=== PATIENT | female | born 1945 | race Caucasian/White ===

== ENCOUNTER 2021-08-17 11:51 | Inpatient (IN) | payer OTHER, MEDICARE ==
[2021-08-17 13:14] LABS: VENOUS O2 SATURATION 67.2 % (70-80); VENOUS PCO2 49.4 mmHg (38-52); VENOUS PH 7.372 (7.310-7.410)
[2021-08-17 13:21] LABS: BASO % 1.4 % (0-2.0); EOS % 3.1 % (0-4.5); HEMATOCRIT 37.5 % (32.4-45.2); LYMPH % 25.4 % (8-40); MCH 31.8 pg (25.7-33.7); MCHC 34.8 g/dl (32.0-36.0); MEAN CELL VOLUME 91.3 fl (80-96); MEAN PLT VOLUME 8.8 fl (7.5-11.1); MONO % 9.5 % (3.8-10.2); NEUT % 60.6 % (42.8-82.8); PLATELET COUNT 79 10^3/uL (134-434); RDW 16.5 % (11.6-15.6); WHITE BLOOD COUNT 3.2 K/mm3 (4.0-10.0)
[2021-08-17 13:28] LABS: INR 1.1 (0.83-1.09); PROTHROMBIN TIME (PATIENT) 12.3 SEC (9.7-13.0)
[2021-08-17 13:30] LABS: ACTIVATED PTT 28.7 SECONDS (25.2-36.5)
[2021-08-17 13:45] LABS: CALCIUM 9.2 mg/dL (8.5-10.1); CHLORIDE 107 mmol/L (98-107); SODIUM 141 mmol/L (136-145)
[2021-08-17 13:46] LABS: ANION GAP 2 MMOL/L (8-16); CO2 32 mmol/L (21-32)
[2021-08-17 13:47] LABS: ALBUMIN 3.7 g/dl (3.4-5.0)
[2021-08-17 13:48] LABS: GLUCOSE,RANDOM 74 mg/dL (74-106); MAGNESIUM 2.1 mg/dL (1.8-2.4)
[2021-08-17 13:50] LABS: CREATININE 0.7 mg/dL (0.55-1.3)
[2021-08-17 13:51] LABS: SGOT/AST 33 U/L (15-37); SGPT/ALT 24 U/L (13-61)
[2021-08-17 13:52] LABS: BILIRUBIN,TOTAL 0.8 mg/dL (0.2-1); TOT PROT 6.8 g/dl (6.4-8.2)
[2021-08-17 13:53] LABS: ALK PHOS 44 U/L (45-117)
[2021-08-17 13:55] LABS: N-TERMINAL BNP 2252.5 pg/ml (5-450)
[2021-08-17 13:59] LABS: BLOOD UREA NITROGEN 22.1 mg/dL (7-18)
[2021-08-17] MEDS ORDERED: methylPREDNISolone NA SUCC 40 MG/1 ML VIAL IVPUSH ONE (14:16)
[2021-08-17] MEDS ORDERED: methylPREDNISolone NA SUCC 40 MG/1 ML VIAL ONE (14:35)
[2021-08-18] MEDS ORDERED: methylPREDNISolone NA SUCC 40 MG/1 ML VIAL ONE ×2 (02:27→11:54)
[2021-08-18] MEDS: methylPREDNISolone NA SUCC 40 MG/1 ML VIAL IVPUSH SCH ×3 (02:37→18:03)
[2021-08-18] MEDS ORDERED: LEVOTHYROXINE NA 25 MCG TABLET (FP) ONE (06:40)
[2021-08-18] MEDS: LEVOTHYROXINE NA 50 MCG TABLET (FP) PO SCH (06:49)
[2021-08-18] MEDS: DIGOXIN 0.125 MG TABLET PO SCH (11:00)
[2021-08-18] MEDS: TIOTROPIUM BROMIDE 2.5 MCG (SPIRIVA) RESPIMAT INHALER IH SCH (11:00)
[2021-08-18] MEDS: FUROSEMIDE 40 MG TABLET (FP) PO SCH (11:00)
[2021-08-18] MEDS: PARoxetine HCL 10 MG TABLET PO SCH (11:00)
[2021-08-18] MEDS: SACUBITRIL/VALSARTAN 24 MG-26 MG TABLET PO SCH ×2 (11:00→22:01)
[2021-08-18] MEDS: SPIRONOLACTONE 25 MG TABLET PO SCH (11:00)
[2021-08-18] MEDS: BUDESONIDE/FORMETEROL FUMARATE 160/4.5 mcg INHALER IH SCH ×2 (11:00→22:02)
[2021-08-18] MEDS: PANTOPRAZOLE 40 MG TABLET PO SCH (11:00)
[2021-08-18] MEDS ORDERED: FUROSEMIDE 40 MG TABLET (FP) ONE (11:52)
[2021-08-18] MEDS ORDERED: PANTOPRAZOLE 40 MG TABLET ONE (11:52)
[2021-08-18] MEDS ORDERED: DIGOXIN 0.125 MG TABLET ONE (11:52)
[2021-08-18] MEDS ORDERED: PARoxetine HCL 10 MG TABLET ONE (11:53)
[2021-08-18] MEDS ORDERED: ENOXAPARIN NA (PORCINE) 40 MG/0.4 ML DISP.SYRIN SQ ONE (11:53)
[2021-08-18] MEDS ORDERED: SPIRONOLACTONE 25 MG TABLET ONE (11:53)
[2021-08-18] MEDS: ENOXAPARIN NA (PORCINE) 40 MG/0.4 ML DISP.SYRIN SQ SCH (13:41)
[2021-08-18] MEDS: ACETAMINOPHEN 325 MG TABLET (FP) PO PRN (22:01)
[2021-08-19] MEDS: methylPREDNISolone NA SUCC 40 MG/1 ML VIAL IVPUSH SCH ×3 (01:28→17:57)
[2021-08-19] MEDS ORDERED: PT OWN MED DRAWER 7, Y5N ONE ×6 (05:13→22:55)
[2021-08-19] MEDS: ACETAMINOPHEN 325 MG TABLET (FP) PO PRN ×2 (06:09→21:40)
[2021-08-19] MEDS: LEVOTHYROXINE NA 50 MCG TABLET (FP) PO SCH (06:09)
[2021-08-19] MEDS: ENOXAPARIN NA (PORCINE) 40 MG/0.4 ML DISP.SYRIN SQ SCH (09:23)
[2021-08-19] MEDS: FUROSEMIDE 40 MG TABLET (FP) PO SCH (09:24)
[2021-08-19] MEDS: DIGOXIN 0.125 MG TABLET PO SCH (09:24)
[2021-08-19] MEDS: PARoxetine HCL 10 MG TABLET PO SCH (09:24)
[2021-08-19] MEDS: PANTOPRAZOLE 40 MG TABLET PO SCH (09:24)
[2021-08-19] MEDS: SPIRONOLACTONE 25 MG TABLET PO SCH (09:24)
[2021-08-19] MEDS: BUDESONIDE/FORMETEROL FUMARATE 160/4.5 mcg INHALER IH SCH ×3 (09:28→21:46)
[2021-08-19 14:03] VITALS: BMI 28.9
[2021-08-19] MEDS: SACUBITRIL/VALSARTAN 24 MG-26 MG TABLET PO SCH ×2 (15:02→22:18)
[2021-08-19] MEDS: TIOTROPIUM BROMIDE 2.5 MCG (SPIRIVA) RESPIMAT INHALER IH SCH (18:03)
[2021-08-20] MEDS: methylPREDNISolone NA SUCC 40 MG/1 ML VIAL IVPUSH SCH ×3 (01:33→21:41)
[2021-08-20] MEDS: LEVOTHYROXINE NA 50 MCG TABLET (FP) PO SCH (06:09)
[2021-08-20] MEDS: PARoxetine HCL 10 MG TABLET PO SCH (09:47)
[2021-08-20] MEDS: PANTOPRAZOLE 40 MG TABLET PO SCH (09:47)
[2021-08-20] MEDS: FUROSEMIDE 40 MG TABLET (FP) PO SCH (09:48)
[2021-08-20] MEDS: SPIRONOLACTONE 25 MG TABLET PO SCH (09:48)
[2021-08-20] MEDS: SACUBITRIL/VALSARTAN 24 MG-26 MG TABLET PO SCH ×2 (09:49→21:41)
[2021-08-20] MEDS: ENOXAPARIN NA (PORCINE) 40 MG/0.4 ML DISP.SYRIN SQ SCH (09:49)
[2021-08-20] MEDS: DIGOXIN 0.125 MG TABLET PO SCH (09:52)
[2021-08-20] MEDS: BUDESONIDE/FORMETEROL FUMARATE 160/4.5 mcg INHALER IH SCH ×2 (09:53→21:41)
[2021-08-20] MEDS: TIOTROPIUM BROMIDE 2.5 MCG (SPIRIVA) RESPIMAT INHALER IH SCH (09:53)
[2021-08-20] MEDS ORDERED: PT OWN MED DRAWER 7, Y5N ONE (21:28)
[2021-08-21] MEDS: LEVOTHYROXINE NA 50 MCG TABLET (FP) PO SCH (06:21)
[2021-08-21] MEDS: ENOXAPARIN NA (PORCINE) 40 MG/0.4 ML DISP.SYRIN SQ SCH (11:40)
[2021-08-21] MEDS: PANTOPRAZOLE 40 MG TABLET PO SCH (11:40)
[2021-08-21] MEDS: SACUBITRIL/VALSARTAN 24 MG-26 MG TABLET PO SCH (11:41)
[2021-08-21] MEDS: SPIRONOLACTONE 25 MG TABLET PO SCH (11:41)
[2021-08-21] MEDS: DIGOXIN 0.125 MG TABLET PO SCH (11:42)
[2021-08-21] MEDS: PARoxetine HCL 10 MG TABLET PO SCH (11:42)
[2021-08-21] MEDS: FUROSEMIDE 40 MG TABLET (FP) PO SCH (11:42)
[2021-08-21] MEDS: TIOTROPIUM BROMIDE 2.5 MCG (SPIRIVA) RESPIMAT INHALER IH SCH (11:48)
[2021-08-21] MEDS: BUDESONIDE/FORMETEROL FUMARATE 160/4.5 mcg INHALER IH SCH (11:48)
[2021-08-21] MEDS: methylPREDNISolone NA SUCC 40 MG/1 ML VIAL IVPUSH SCH (12:10)
[2021-08-21 14:19] VITALS: BP 106/64; PULSE 66; TEMP 97.8
[2021-08-21] MEDS: ACETAMINOPHEN 325 MG TABLET (FP) PO PRN (14:49)
== END 2021-08-21 17:28 | disposition home health service (06) | DRG 202 ==
LOC: JER 11:51 → JERBED 12:56 → J5S 08-18 19:21
PROVIDERS: ADMIT Internal Medicine; ATTEND Internal Medicine
DX: J45.901 Unspecified asthma with (acute) exacerbation (principal); I50.22 Chronic systolic (congestive) heart failure; I48.91 Unspecified atrial fibrillation; I10 Essential (primary) hypertension; K74.60 Unspecified cirrhosis of liver; K31.89 Other diseases of stomach and duodenum; E21.3 Hyperparathyroidism, unspecified; J44.9 Chronic obstructive pulmonary disease, unspecified; E06.3 Autoimmune thyroiditis; F41.8 Other specified anxiety disorders
CPT/HCPCS: 36415; 71045-TC-FY; 71250-TC; 80053; 82550; 82803; 83735; 83880; 84439; 84443; 84484; 85025; 85379; 85610; 85730; 87804; 93005; 93010; 93306-TC; 93970-TC; 93971-TC; 97116-GP; 97161-GP; 99285-25; C9803; U0003; U0005